=== PATIENT | female | born 1990 | race Hispanic/Latino ===

== ENCOUNTER 2018-12-07 17:03 | Observation (INO) | payer MEDICAID ==
[~2018-12-07] VITALS: Ht 147.3 cm; Wt 52.6 kg
[2018-12-07 17:36] LABS: APPEARANCE,URINE Clear (CLEAR); BILIRUBIN,URINE Negative (NEGATIVE); COLOR,URINE Yellow (YELLOW); GLUCOSE, URINE (UA) Negative (NEGATIVE); KETONES,URINE Negative (NEGATIVE); LEUKOCYTE ESTERASE ,URINE Trace (NEGATIVE); NITRATE,URINE Negative (NEGATIVE); OCCULT BLOOD,URINE Negative (NEGATIVE); PH,URINE >=9.0 (5.0-8.0); PROTEIN,URINE Negative (NEGATIVE)
[2018-12-07 17:45] LABS: RBC,URINE 0-1 /HPF (0-1)
[2018-12-07 17:46] LABS: BACTERIA,URINE Rare /HPF (None Seen); SQUAMOUS EPITHELIAL CELL,UR Few /HPF (0-2)
[2018-12-07] MEDS ORDERED: LACTATED RINGERS 1000ML 1,000 ML IV SCH (18:30)
== END 2018-12-07 21:15 | disposition home or self-care (01) ==
LOC: EDH 17:03 → LDH 17:04
PROVIDERS: ADMIT Obstetrics & Gynecology; ATTEND Obstetrics & Gynecology
DX: O26.893 Other specified pregnancy related conditions, third trimester (principal); R10.9 Unspecified abdominal pain; Z3A.36 36 weeks gestation of pregnancy
CPT/HCPCS: 81001; 99284; G0378 ×4; J7120 ×2; 96360; 96361

== ENCOUNTER 2024-09-07 07:30 | Emergency (ER) | payer OTHER, BC ==
[~2024-09-07] VITALS: Ht 147.3 cm; Wt 59.0 kg
[~2024-09-07 07:30] MED LIST: PREN-154 PO
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
[2024-09-07] MEDS ORDERED: KETO10TA2 PO (07:51)
[2024-09-07] MEDS: ketOROlac 30MG VIAL (30MG/ML) IM ONE (07:52)
[2024-09-07 08:22] VITALS: BP 132/80; PULSE 81; RESP 16; TEMP 98.4; O2SAT 99
== END 2024-09-07 08:27 | disposition home or self-care (01) ==
LOC: EDH 07:30
DX: M62.830 Muscle spasm of back (principal); F32.A Depression, unspecified
CPT/HCPCS: 99283; 96372; J1885